=== PATIENT | female | born 1935 | race Caucasian/White ===

== ENCOUNTER 2020-03-25 07:58 | Outpatient (CLI) | payer MEDICARE, SELFPAY ==
--- NOTE | ~2020-03-25 | MM_ITS ---
EXAMINATION: MM screening jayme BI w miguel a HISTORY: Screening mammogram TECHNIQUE: Craniocaudal and mediolateral oblique 3-D tomosynthesis images were obtained and synthetic 2-D images were generated. CAD analysis was submitted and interpreted. COMPARISON: 01/08/2019, 12/28/2017 bilateral digital screening mammogram examinations 12/26/2016 right screening and left diagnostic digital mammogram examination BREAST PARENCHYMAL COMPOSITION: There are scattered areas of fibroglandular density.. FINDINGS: Occasional benign calcifications. There is no evidence of suspicious mass, calcification, o r architectural distortion to suggest malignancy in either breast. There has been no suspicious inter ori change. IMPRESSION: 1. No mammographic evidence of malignancy. 2. Recommend routine screening mammography in one year. BI-RADS Category 1: Negative Reviewed, dictated and finalized at location A.
== END 2020-03-25 07:59 | disposition home or self-care (01) ==
PROVIDERS: PCP Internal Medicine; Visit Provider Internal Medicine
DX: Z12.31 Encounter for screening mammogram for malignant neoplasm of breast (principal)
CPT/HCPCS: 77063; 77067

== ENCOUNTER 2021-04-14 07:19 | Outpatient (CLI) | payer MEDICARE, SELFPAY ==
--- NOTE | ~2021-04-14 | MM_ITS ---
EXAMINATION: MM screening jayme BI w miguel a HISTORY: Screening mammogram TECHNIQUE: Craniocaudal and mediolateral oblique 3-D tomosynthesis images were obtained and synthetic 2-D images were generated. CAD analysis was submitted and interpreted. COMPARISON: 03/2020, 01/08/2019, 12/28/2017 bilateral digital screening mammogram examinations BREAST PARENCHYMAL COMPOSITION: There are scattered areas of fibroglandular density. FINDINGS: Right breast: There are several areas of subtle microcalcifications; magnification views are recommended. Left breast: There is no evidence of suspicious mass, calcification, or architectural distortion to s uggest malignancy in the right breast. There has been no suspicious interval change on the right. IMPRESSION: 1. Several areas of subtle microcalcifications, right breast 2. Diagnostic right mammogram with magnification views is recommended BI-RADS Category 0: Incomplete: Needs additional imaging evaluation. Reviewed, dictated and finalized at location A.
== END 2021-04-14 07:20 | disposition home or self-care (01) ==
LOC: ANHIMG 07:24
PROVIDERS: PCP Internal Medicine; Visit Provider Internal Medicine
DX: Z12.31 Encounter for screening mammogram for malignant neoplasm of breast (principal); R92.8 Other abnormal and inconclusive findings on diagnostic imaging of breast
CPT/HCPCS: 77063; 77067

== ENCOUNTER 2021-05-09 13:24 | Outpatient (CLI) | payer MEDICARE, SELFPAY ==
--- NOTE | ~2021-05-09 | MM_ITS ---
CORRECTED REPORT Procedure description corrected. 05/10/2021 sef EXAMINATION: MM diagnostic jayme RT HISTORY: Follow-up right breast calcifications TECHNIQUE: Additional 3-D tomosynthesis images of the right breast were performed and synthetic 2-D images were generated. CAD analysis was submitted and interpreted. COMPARISON: 04/14/2021 BREAST PARENCHYMAL COMPOSITION: Breast composed of scattered areas of fibroglandular density. FINDINGS: There are scattered punctate microcalcifications in the right breast which are likely benign. There are no suspicious masses or architectural distortion. IMPRESSION: 1. Probable benign scattered right breast microcalcifications. 2. Recommend 6 month follow-up diagnostic right mammogram. BI-RADS category 3, probably benign findings. Reviewed, dictated and finalized at location A. MTDD
== END 2021-05-09 13:25 | disposition home or self-care (01) ==
LOC: ANHIMG 13:25
PROVIDERS: PCP Internal Medicine; Visit Provider Internal Medicine
DX: R92.8 Other abnormal and inconclusive findings on diagnostic imaging of breast (principal)
CPT/HCPCS: 77061; 77065; G0279

== ENCOUNTER 2021-12-30 12:18 | Outpatient (CLI) | payer MEDICARE, SELFPAY ==
--- NOTE | ~2021-12-30 | MM_ITS ---
EXAMINATION: MM diagnostic jayme RT w miguel a HISTORY: Right breast calcifications TECHNIQUE: Additional 3-D tomosynthesis images of the right breast were performed and synthetic 2-D i mages were generated. CAD analysis was submitted and interpreted. COMPARISON: Comparison to multiple prior studies sequentially, with oldest reviewed study dated 04/2017. BREAST PARENCHYMAL COMPOSITION: Breast composed of scattered areas of fibroglandular density. FINDINGS: Stable benign-appearing right breast calcifications. No new masses, calcifications or archi tectural distortion in the right breast to suggest malignancy. IMPRESSION: 1. No mammographic evidence for malignancy in the right breast. 2. Routine yearly screening mammogram and regular clinical breast examination are recommended. BI-RADS Category 2: Benign finding(s). Reviewed, dictated and finalized at location A. 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 No mammographic evidence for malignancy in the right breast. 2. Routine yearly screening mammogram and regular clinical breast examination a re recommended. BI-RADS Category 2: Benign finding(s).
== END 2021-12-30 12:19 | disposition home or self-care (01) ==
LOC: ANHIMG 12:22
PROVIDERS: PCP Internal Medicine; Visit Provider Internal Medicine
DX: R92.8 Other abnormal and inconclusive findings on diagnostic imaging of breast (principal)
CPT/HCPCS: 77061; 77065; G0279

== ENCOUNTER 2022-12-11 10:17 | Outpatient (CLI) | payer MEDICARE, SELFPAY ==
--- NOTE | 2022-12-11 11:00 | NEURO_ITS ---
Impression: # Complains of numbness of both hands. # Bilateral Carpal Tunnel Syndrome. # Bilateral ulnar neuropathy across the elbow. # Normal needle/EMG exam. Motor Nerve Conduction Upper Extremities Median Nerve Conduction Velocity (m/sec) Terminal Latency (msec) Response Voltage(mV) Elbow-Wrist Wrist Elbow Wrist Right 59 4.5 3 2 Left 60 4.4 4 4 Ulnar Nerve Conduction Velocity (m/sec) Terminal Latency (msec) Response Voltage(mV) Above Elbow Below Elbow Wrist Above Elbow Below Elbow Wrist Right 51 58 2.5 4 4 4 Left 51 61 2.5 4 3 6 F-Wave Latency Median (ms) Ulnar (ms) Right 29.4 28.6 Left 30.3 29.1 Sensory Nerve Conduction Upper Extremities Median Nerve Stimulation Terminal Latency (msec) Wrist/Digit Response Voltage (uV) Wrist Right 5.6/6.1 21/ Left 6.8/6.0 16/17 Ulnar Nerve Stimulation Terminal Latency (msec) Wrist/Digit Response Voltage (uV) Wrist Right 2.5 30 Left 2.9 13 Radial Nerve Terminal Latency (msec) Response Voltage(mV) Right 2.8 12 Left 2.1 7 Left Right Muscles Examined Fibrillation Fasciculation Scarcity Voltage Duration Left Right Left Right Left Right Left Right Left Right Deltoid Biceps X X Brachioradialis Triceps X X Pronator Teres X X Ext Indicis X X Ext Digitorum X X Abd Poll Brev X X 1st Dorsal Interosseus X X Abd Dig Min MTDD
== END 2022-12-11 10:18 | disposition home or self-care (01) ==
PROVIDERS: PCP Internal Medicine; Visit Provider Internal Medicine
DX: R20.0 Anesthesia of skin (principal); G56.03 Carpal tunnel syndrome, bilateral upper limbs; G56.23 Lesion of ulnar nerve, bilateral upper limbs
CPT/HCPCS: 95886; 95911

== ENCOUNTER 2023-02-12 09:34 | Outpatient (CLI) | payer MEDICARE, SELFPAY ==
--- NOTE | ~2023-02-12 | MM_ITS ---
EXAMINATION: MM screening jayme BI w miguel a HISTORY: Screening mammogram TECHNIQUE: Craniocaudal and mediolateral oblique 3-D tomosynthesis images were obtained and synthetic 2-D images were generated. CAD analysis was submitted and interpreted. COMPARISON: 12/30/2021 diagnostic right mammogram 05/09/2021 diagnostic right mammogram 04/14/2021, 03/25/2020 bilateral screening mammogram examinations BREAST PARENCHYMAL COMPOSITION: There are scattered areas of fibroglandular density. FINDINGS: There is no evidence of suspicious mass, calcification, or architectural distortion to sugg est malignancy in either breast. There has been no suspicious interval change. IMPRESSION: 1. No mammographic evidence of malignancy. 2. Recommend routine screening mammography in one year. BI-RADS Category 2: Benign finding(s). Reviewed, dictated and finalized at location A.
== END 2023-02-12 09:35 | disposition home or self-care (01) ==
LOC: ANHIMG 09:36
PROVIDERS: PCP Internal Medicine; Visit Provider Internal Medicine
DX: Z12.31 Encounter for screening mammogram for malignant neoplasm of breast (principal)
CPT/HCPCS: 77063; 77067

== ENCOUNTER 2023-07-17 18:14 | Emergency (ER) | payer OTHER, MEDICARE, SELFPAY ==
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
[2023-07-17 18:35] VITALS: BP 139/62; PULSE 100; RESP 18; TEMP 37.1; O2SAT 95
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
[2023-07-18] MEDS: traMADol HCL (*CRX) 25 MG TABLET PO (03:33)
[2023-07-18 03:56] VITALS: BP 134/67; PULSE 78; RESP 15; O2SAT 97
== END 2023-07-18 03:45 | disposition home or self-care (01) ==
PROVIDERS: Emergency Provider Physician Assistant; PCP Internal Medicine
DX: S50.01XA Contusion of right elbow, initial encounter (principal); S39.012A Strain of muscle, fascia and tendon of lower back, initial encounter; S29.012A Strain of muscle and tendon of back wall of thorax, initial encounter; V49.40XA Driver injured in collision with unspecified motor vehicles in traffic accident, initial encounter; Z79.82 Long term (current) use of aspirin
CPT/HCPCS: 70450; 71046; 72125; 72128; 72131; 73080; 99284; A9270

== ENCOUNTER 2024-01-09 12:04 | Outpatient (CLI) | payer MEDICARE, SELFPAY ==
--- NOTE | ~2024-01-09 | XR_ITS ---
Clinical Indication: Heart flutter PA and lateral views of the chest: Comparison: 07/18/2023 Findings: The lungs are clear, without evidence of focal consolidation or pleural effusion. Cardiome diastinal silhouette is within normal limits. Bones and soft tissues are unremarkable. Impression: Clear lungs. Reviewed, dictated and finalized at location . Impression: Clear lungs.
--- NOTE | 2024-01-09 12:23 | ECG_ITS ---
Measurements Intervals [place] Rate: 95 P: 69 SC: 158 QRS: 66 QRSD: 101 T: 68 QT: 330 QTc: 416 Interpretive Statements SINUS RHYTHM BORDERLINE ST ABNORMALITY- LATERAL LEADS BASELINE ARTIFACT- I, III, AVR, AVL, V3-V5 BORDERLINE ECG NO PREVIOUS ECG AVAILABLE FOR COMPARISON Electronically Signed On 01-09-2024 12:52:08 CDT by Anurag Colon D.O.
== END 2024-01-09 12:05 | disposition home or self-care (01) ==
LOC: ANHCARD 12:09
PROVIDERS: PCP Internal Medicine; Visit Provider Internal Medicine
DX: R06.09 Other forms of dyspnea (principal); R94.31 Abnormal electrocardiogram [ECG] [EKG]
CPT/HCPCS: 71046; 93005

== ENCOUNTER 2024-06-02 09:10 | Outpatient (CLI) | payer MEDICARE, SELFPAY ==
--- NOTE | ~2024-06-02 | MM_ITS ---
EXAMINATION: MM screening jayme BI w miguel a HISTORY: Screening TECHNIQUE: Craniocaudal and mediolateral oblique 3-D tomosynthesis images were obtained and synthetic 2-D images were generated. CAD analysis was submitted and interpreted. COMPARISON: Comparison to multiple prior studies sequentially, with oldest reviewed study dated 01/08. BREAST PARENCHYMAL COMPOSITION: Not dense: There are scattered areas of fibroglandular density. FINDINGS: There is no evidence of suspicious mass, calcification, or architectural distortion to sugg est malignancy in either breast. There has been no suspicious interval change. IMPRESSION: 1. No mammographic evidence of malignancy. 2. Recommend routine screening mammography in one year. BI-RADS Category 1: Negative Reviewed, dictated and finalized at location B.
== END 2024-06-02 09:11 | disposition home or self-care (01) ==
LOC: ANHIMG 09:11
PROVIDERS: PCP Internal Medicine; Visit Provider Internal Medicine
DX: Z12.31 Encounter for screening mammogram for malignant neoplasm of breast (principal)
CPT/HCPCS: 77063; 77067

== ENCOUNTER 2024-07-26 12:14 | Emergency (ER) | payer MEDICARE, SELFPAY ==
--- NOTE | ~2024-07-26 | XR_ITS ---
EXAMINATION: XR chest 2V DATE: 07/26/2024 13:11 INDICATION: Several weeks of productive cough TECHNIQUE: frontal and lateral views of the chest were obtained. COMPARISON: Chest radiograph dated 01/09/2024 FINDINGS: The lungs remain clear with no focal airspace opacities, pulmonary edema, pleural effusion or pneumot horax. The cardiomediastinal silhouette is normal. Mitral annular calcification. IMPRESSION: 1. No acute cardiopulmonary disease. Reviewed, dictated and finalized at location A.
[2024-07-26 12:30] VITALS: BP 131/69; PULSE 106; RESP 16; TEMP 37; O2SAT 95
--- NOTE | 2024-07-26 12:53 | ED.URI ---
HPI - URI/Sore Throat General Chief Complaint: Upper Respiratory Infection Stated Complaint: cough,drainage,chest achy Time Seen by Provider: 07/26/24 12:54 Source: patient, RN notes reviewed and old records reviewed Mode of arrival: ambulatory Limitations: no limitations History of Present Illness HPI Narrative: Cough for 1 month, workup in progress with primary care. Patient reports that cough is dry and hacking. She feels as though it is worse at night. She admits that she has been prescribed an inhaler, this has not helped. She admits that she has appointments made for cardiac testing per her primary care provider, says that she feels that this is not soon enough. She denies any fever, chills, sweats. She denies any shortness of breath. She reports that heart rate has been in the low 100s for at least 1 month. She denies any palpitations or chest pain. Related Data Home Medications Medication Instructions Recorded Confirmed aspirin 81 mg tablet,delayed 81 mg PO DAILY 11/18/19 07/22/24 release fluticasone propionate 50 2 spray intranasal DAILY 11/18/19 07/22/24 mcg/actuation nasal spray,suspension omega-3 fatty acids 1,000 mg 1,000 mg PO DAILY 11/18/19 07/22/24 capsule (Fish Oil Concentrate) vit C 226 mg-vit E 90 mg-copper cap PO 11/18/19 07/22/24 0.8 mg-zinc oxide-lutein 5 mg capsule (PreserVision Lutein) calcium 600 mg (as 1 tablet PO DAILY 07/05/21 07/22/24 carbonate)-vitamin D3 5 mcg (200 unit) tablet albuterol sulfate 90 mcg/actuation inhalation 07/26/24 aerosol inhaler (Ventolin HFA) Allergies Allergy/AdvReac Type Severity Reaction Status Date / Time azithromycin Allergy Mild Unknown Verified 07/22/24 11:19 levofloxacin Allergy Mild Unknown Verified 07/22/24 11:19 lisinopril Allergy Mild COUGH/WHEEZ Verified 07/22/24 11:19 E losartan Allergy Mild Unknown Verified 07/22/24 11:19 Review of Systems Review of Systems: All systems reviewed & are unremarkable except as noted in HPI and below Constitutional: Constitutional: Reports no additional constitutional complaints ENT: Reports system reviewed and no additional complaints, except as documented Cardiovascular: Cardiovascular: Reports no additional cardiovascular complaints Respiratory: Respiratory: Reports as per HPI, Reports no additional respiratory complaints and Reports cough Gastrointestinal: Gastrointestinal: Reports no additional gastrointestinal complaints [facility] Past Medical History Medical History Injection of surface of left eye Family History Family History Mother Patient's mother is Father Patient's father is Sibling Patient's sister is Patient's brother is Social History Social History Smoking status: Never smoker Second hand tobacco smoke exposure: No Alcohol intake: current Alcohol use details: rarely Substance use: never Current Housing: Decline to Answer Concerned About Future Housing: Decline to Answer Difficulty Paying Gas/Electric Bills: Decline to Answer Difficulty Paying for Meds: Decline to Answer Currently Unemployed: Decline to Answer Education: Decline to Answer Difficulty w/ Childcare or Family Care: Decline to Answer Comments At the time of my signature, I reviewed and agree with the nursing past medical, surgical, social, and family history. There is no relevant family history pertinent to the patient complaint. Exam Const: General: cooperative, no acute distress, alert and awake Orientation/consciousness: oriented to person, oriented to place and oriented to time HENMT: Head: normal to inspection Ears: TM's normal bilaterally Mouth: Yes moist mucous membranes Throat: posterior oropharynx normal Resp: Effort & In
== END 2024-07-26 13:59 | disposition home or self-care (01) ==
PROVIDERS: Emergency Provider Nurse Practitioner Family; PCP Internal Medicine
DX: R05.9 Cough, unspecified (principal); Z79.82 Long term (current) use of aspirin
CPT/HCPCS: 71046; 99213; G0463

== ENCOUNTER 2024-07-28 15:31 | Emergency (ER) | payer MEDICARE, SELFPAY ==
--- NOTE | 2024-07-28 15:35 | ED.WOUNDLAC ---
HPI - Wound/Laceration General Chief Complaint: Extremity Injury, Lower Stated Complaint: Wound Check Time Seen by Provider: 07/28/24 16:00 Source: patient Mode of arrival: ambulatory Limitations: no limitations History of Present Illness HPI narrative: Kasey is a 89-year-old female patient presenting to the clinic today with complaints of a possible wound infection. She reports she had a puncture wound to the right anterior lower leg heard on Sunday. She reports that she walked into a stick that stuck into her leg. Has redness and swelling over the lower leg/ankle. No known fever or chills. Tetanus shot is unknown Related Data Home Medications Medication Instructions Recorded Confirmed aspirin 81 mg tablet,delayed 81 mg PO DAILY 11/18/19 07/22/24 release fluticasone propionate 50 2 spray intranasal DAILY 11/18/19 07/22/24 mcg/actuation nasal spray,suspension omega-3 fatty acids 1,000 mg 1,000 mg PO DAILY 11/18/19 07/22/24 capsule (Fish Oil Concentrate) vit C 226 mg-vit E 90 mg-copper cap PO 11/18/19 07/22/24 0.8 mg-zinc oxide-lutein 5 mg capsule (PreserVision Lutein) calcium 600 mg (as 1 tablet PO DAILY 07/05/21 07/22/24 carbonate)-vitamin D3 5 mcg (200 unit) tablet albuterol sulfate 90 mcg/actuation inhalation 07/26/24 aerosol inhaler (Ventolin HFA) Allergies Allergy/AdvReac Type Severity Reaction Status Date / Time azithromycin Allergy Mild Unknown Verified 07/28/24 15:47 levofloxacin Allergy Mild Unknown Verified 07/28/24 15:47 lisinopril Allergy Mild COUGH/WHEEZ Verified 07/28/24 15:47 E losartan Allergy Mild Unknown Verified 07/28/24 15:47 Review of Systems Review of Systems: Pertinent positives per HPI. Patient denies any fever, chills, rash, headache, visual changes, dizziness, cough, runny nose, sore throat, shortness of breath, chest pain, palpitations, nausea, vomiting, diarrhea, constipation, abdominal pain, or any urinary issues. PMFSH Past Medical History Medical History Injection of surface of left eye Family History Family History Mother Patient's mother is Father Patient's father is Sibling Patient's sister is Patient's brother is Social History Social History Smoking status: Never smoker Second hand tobacco smoke exposure: No Alcohol intake: current Alcohol use details: rarely Substance use: never Current Housing: Decline to Answer Concerned About Future Housing: Decline to Answer Difficulty Paying Gas/Electric Bills: Decline to Answer Difficulty Paying for Meds: Decline to Answer Currently Unemployed: Decline to Answer Education: Decline to Answer Difficulty w/ Childcare or Family Care: Decline to Answer Comments At the time of my signature, I reviewed and agree with the nursing past medical, surgical, social, and family history. There is no relevant family history pertinent to the patient complaint. Exam Narrative: General: Well-developed, well nourished, in no apparent distress Head: Normocephalic, atraumatic. Cardio: Regular rate and rhythm, s1 and s2 normal, no murmur appreciated. Resp: Clear to auscultation bilaterally, no rhonchi, rales, wheezing or rubs. Integumentary: [place], warm, and dry, 1.5 cm superficial puncture wound to the right lower tib-fib with localized swelling and redness over the lower tib-fib and ankle. Tender to palpation over the puncture wound without palpable abscess Course Course Emergency Course: Portions of this record may have been created with voice recognition software. Level of Care: Express Care Visit Vital Signs Vital signs: Vital Signs Temperature 36.8 C 07/28/24 15:51 Pulse Rate 83 07/28/24 15:51 Respiratory Rate 20
[2024-07-28 15:51] VITALS: BP 123/53; PULSE 83; RESP 20; TEMP 36.8; O2SAT 99
[2024-07-28] MEDS: TETANUS,DIPHTHERIA,AC PERTUSSIS ADULT (0.5 ML) BOOSTRIX IM (16:20)
== END 2024-07-28 16:49 | disposition home or self-care (01) ==
PROVIDERS: Emergency Provider Nurse Practitioner Family; PCP Internal Medicine
DX: S81.831A Puncture wound without foreign body, right lower leg, initial encounter (principal); L08.9 Local infection of the skin and subcutaneous tissue, unspecified; W22.8XXA Striking against or struck by other objects, initial encounter; Z23 Encounter for immunization; Z79.82 Long term (current) use of aspirin
CPT/HCPCS: 90471; 90715; 99213; G0463

== ENCOUNTER 2024-08-04 09:47 | Emergency (ER) | payer MEDICARE, SELFPAY ==
--- NOTE | 2024-08-04 09:51 | ED.WOUNDLAC ---
HPI - Wound/Laceration General Chief Complaint: Wound/Laceration Stated Complaint: right leg wound recheck Time Seen by Provider: 08/04/24 09:55 Source: patient, RN notes reviewed and old records reviewed Mode of arrival: ambulatory Limitations: no limitations History of Present Illness HPI narrative: 89-year-old female presents to the [facility] requesting the wound to the right lower leg be rechecked. Was seen a week ago. Patient with a scabbed over area to the right anterior lower leg. Patient reports clear drainage. No redness or swelling noted. No purulent drainage Patient reports that she did finish her antibiotics. Treatments prior to arrival: other (Antibiotics) Related Data Home Medications Medication Instructions Recorded Confirmed aspirin 81 mg tablet,delayed 81 mg PO DAILY 11/18/19 08/04/24 release fluticasone propionate 50 2 spray intranasal DAILY 11/18/19 08/04/24 mcg/actuation nasal spray,suspension omega-3 fatty acids 1,000 mg 1,000 mg PO DAILY 11/18/19 08/04/24 capsule (Fish Oil Concentrate) vit C 226 mg-vit E 90 mg-copper 1 cap PO DAILY 11/18/19 08/04/24 0.8 mg-zinc oxide-lutein 5 mg capsule (PreserVision Lutein) calcium 600 mg (as 1 tablet PO DAILY 07/05/21 08/04/24 carbonate)-vitamin D3 5 mcg (200 unit) tablet albuterol sulfate 90 mcg/actuation 2 puff inhalation PRN PRN 07/26/24 08/04/24 aerosol inhaler (Ventolin HFA) Shortness Of Breath Allergies Allergy/AdvReac Type Severity Reaction Status Date / Time azithromycin Allergy Mild Unknown Verified 08/04/24 10:02 levofloxacin Allergy Mild Unknown Verified 08/04/24 10:02 lisinopril Allergy Mild COUGH/WHEEZ Verified 08/04/24 10:02 E losartan Allergy Mild Unknown Verified 08/04/24 10:02 Review of Systems Review of Systems: All systems reviewed & are unremarkable except as noted in HPI and below Constitutional: Constitutional: Reports no additional constitutional complaints Eyes: Eyes: Reports no additional eye complaints ENT: Reports system reviewed and no additional complaints, except as documented Cardiovascular: Cardiovascular: Reports no additional cardiovascular complaints, Denies chest pain and Denies dyspnea Respiratory: Respiratory: Reports no additional respiratory complaints, Denies chest congestion, Denies cough and Denies dyspnea Gastrointestinal: Gastrointestinal: Reports no additional gastrointestinal complaints, Denies abdominal pain, Denies nausea and Denies vomiting Musculoskeletal: Musculoskeletal: Reports no additional musculoskeletal complaints Integumentary/Breasts: Skin/Breast: Reports as per HPI Neurologic: Reports system reviewed and no additional complaints, except as documented Psychiatric: Psychiatric: Reports no additional psychiatric complaints Allergic/Immunologic: Allergic/Immunologic: Reports no additional allergic/immunologic complaints PMFSH Past Medical History Medical History Anemia, unspecified Annual physical exam Cough Dietary counseling and surveillance (05/21/17) Gastro-esophageal reflux disease without esophagitis 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
[2024-08-04 09:57] VITALS: BP 145/67; PULSE 89; RESP 16; TEMP 35.9; O2SAT 98
== END 2024-08-04 10:15 | disposition home or self-care (01) ==
PROVIDERS: Emergency Provider Nurse Practitioner; PCP Internal Medicine
DX: Z48.00 Encounter for change or removal of nonsurgical wound dressing (principal); K21.9 Gastro-esophageal reflux disease without esophagitis; E78.00 Pure hypercholesterolemia, unspecified; Z79.82 Long term (current) use of aspirin
CPT/HCPCS: 99211; G0463

== ENCOUNTER 2024-08-18 14:10 | Outpatient (CLI) | payer MEDICARE, SELFPAY | END 2024-08-18 14:11 | disposition home or self-care (01) | LOC: ANHCARD 14:12 | PROVIDERS: PCP Internal Medicine; Visit Provider Internal Medicine | DX: R00.0 Tachycardia, unspecified (principal) | CPT/HCPCS: 93242 ==